=== PATIENT | male | born 1975 | race Caucasian/White ===

== ENCOUNTER 2018-03-09 09:17 | Emergency (ER) | payer OTHER ==
[~2018-03-09] VITALS: Ht 185.4 cm; Wt 102.1 kg
[~2018-03-09 09:17] MED LIST: ACEASPCAF PO; ASPI325 PO; ASPI81EC PO; CEFD300 PO; CEPH500 PO; Crutch1 EACH MISC; DIAZ5 PO; ERYT.5TO BOTHEYES; Esgic Tablet1 EACH PO; Flonase 0.05% N16 GM; HYDACE5325 PO; HYDR1TAB94 PO; MUPI2TO TOP; Monodox100 MG PO; NAPR500 PO; Norco 10-325 T1 EACH PO; ONDA4 PO; PROCODE120 PO; PSEU120ER PO; Percocet 5-3251 EACH PO; RXHYD5325 PO; SULTRIDS PO; TOBR.3OPO OP; Ventolin Soln3 ML INH; Zithromax250 MG PO
[2018-03-09] MEDS ORDERED: ASPI325 PO (09:54)
[2018-03-09] MEDS ORDERED: ALBU90OI INH (11:09)
== END 2018-03-09 11:12 | disposition home or self-care (01) ==
LOC: ER 09:17
DX: R21 Rash and other nonspecific skin eruption (principal); R06.2 Wheezing; Z88.0 Allergy status to penicillin; I10 Essential (primary) hypertension
CPT/HCPCS: 94640; 99283

== ENCOUNTER → 2018-03-22 | Outpatient (CLI) | payer OTHER ==
[~2018-03-22] MED LIST changes: +ALBU90OI INH
== END | disposition home or self-care (01) ==
LOC: LAB EV 16:57 → LAB SHORT 16:57
DX: R21 Rash and other nonspecific skin eruption (principal)
CPT/HCPCS: 87210

== ENCOUNTER → 2021-04-11 | Outpatient (CLI) | payer MEDICARE, OTHER | LOC: LAB SHORT 10:50 → LAB 10:50 | DX: Z48.02 Encounter for removal of sutures (principal); L08.9 Local infection of the skin and subcutaneous tissue, unspecified | CPT/HCPCS: 87070; 87077; 87147; 87186; 87205 ==

== ENCOUNTER 2021-08-22 13:28 | Emergency (ER) | payer MEDICARE, OTHER ==
[~2021-08-22] VITALS: Ht 182.9 cm; Wt 104.3 kg
[2021-08-22 14:09] LABS: BASOPHILS ABSOLUTE AUTO 0.03 K/mm3 (0.00-0.23); BASOPHILS PERCENT AUTO 0 % (0-2); EOSINOPHILS ABSOLUTE AUTO 0.01 K/mm3 (0.00-0.68); EOSINOPHILS PERCENT AUTO 0 % (0-6); Hematocrit 47.7 % (37.0-53.0); Hemoglobin 16.5 g/dL (13.5-17.5); IMMATURE GRAN ABSOLUTE AUTO 0.06 K/mm3 (0.00-0.10); IMMATURE GRAN PERCENT AUTO 1 % (0-1); LYMPHOCYTES ABSOLUTE AUTO 1.31 K/mm3 (0.84-5.20); LYMPHOCYTES PERCENT AUTO 11 % (21-46); MONOCYTES ABSOLUTE AUTO 0.64 K/mm3 (0.16-1.47); MONOCYTES PERCENT AUTO 5 % (4-13); Mean Corpuscular HGB 31.5 pg (26.0-34.0); Mean Corpuscular HGB Conc 34.6 g/dL (31.5-36.5); Mean Corpuscular Volume 91 fL (80-100); Mean Platelet Volume 10.3 fL (9.1-12.4); NEUTROPHILS ABSOLUTE AUTO 10.19 K/mm3 (1.96-9.15); NEUTROPHILS PERCENT AUTO 83 % (41-73); Platelet Count 275 K/mm3 (150-400); RDW Coefficient Variation 12.6 % (11.7-14.2); RDW Standard Deviation 42.1 fL (35.1-46.3); Red Blood Cell Count 5.24 M/mm3 (4.30-5.90); White Blood Cell Count 12.24 K/mm3 (4.00-11.30)
[2021-08-22 14:25] LABS: Alanine Aminotransfer (ALT/SGP 36 U/L (12-78); Albumin, Blood 4.5 g/dL (3.4-5.0); Albumin/Globulin Ratio 1.1 (0.8-1.8); Alk Phos 96 U/L (50-136); Anion Gap 12 mmol/L (6-16); Aspartate Aminotrans (AST/SGOT 23 U/L (12-37); Bilirubin, Total 1.3 mg/dL (0.1-1.0); Blood Urea Nitrogen 10 mg/dL (8-24); Bun/Creatinine Ratio 13.6 (12.0-20.0); CO2, Blood 24 mmol/L (21-32); Calcium, Blood 10.5 mg/dL (8.5-10.1); Chloride, Blood 103 mmol/L (98-108); Creatinine, Blood 0.73 mg/dL (0.60-1.20); Glomerular Filtration Rate >60 (60-); Glucose, Blood 145 mg/dL (70-99); Potassium, Blood 3.4 mmol/L (3.5-5.5); Sodium, Blood 139 mmol/L (136-145); Total Protein, Blood 8.5 g/dL (6.4-8.2)
[2021-08-22] MEDS ORDERED: ONDA4ODT MM (15:43)
== END 2021-08-22 15:49 | disposition home or self-care (01) ==
LOC: ER 13:28
PROVIDERS: Emergency Medicine
DX: F10.129 Alcohol abuse with intoxication, unspecified (principal); E86.0 Dehydration; Z88.0 Allergy status to penicillin; I10 Essential (primary) hypertension
CPT/HCPCS: 80053; 85025; 96374; 96375; 99284-25; J1885; J2060; J2405; J7030

== ENCOUNTER 2022-04-06 07:46 | Observation (INO) | payer MEDICARE, OTHER ==
[~2022-04-06] VITALS: Ht 185.4 cm; Wt 100.7 kg
[~2022-04-06 07:46] MED LIST changes: +ONDA4ODT MM
[2022-04-06 09:16] LABS: BASOPHILS ABSOLUTE AUTO 0.02 K/mm3 (0.00-0.23); BASOPHILS PERCENT AUTO 0 % (0-2); EOSINOPHILS ABSOLUTE AUTO 0.01 K/mm3 (0.00-0.68); EOSINOPHILS PERCENT AUTO 0 % (0-6); Hematocrit 44.1 % (37.0-53.0); IMMATURE GRAN ABSOLUTE AUTO 0.02 K/mm3 (0.00-0.10); IMMATURE GRAN PERCENT AUTO 0 % (0-1); LYMPHOCYTES PERCENT AUTO 9 % (21-46); MONOCYTES ABSOLUTE AUTO 1.04 K/mm3 (0.16-1.47); MONOCYTES PERCENT AUTO 18 % (4-13); Mean Corpuscular HGB 30.1 pg (26.0-34.0); Mean Corpuscular Volume 89 fL (80-100); Mean Platelet Volume 10.3 fL (9.1-12.4); NEUTROPHILS ABSOLUTE AUTO 4.29 K/mm3 (1.96-9.15); NEUTROPHILS PERCENT AUTO 73 % (41-73); Platelet Count 187 K/mm3 (150-400); RDW Coefficient Variation 13.2 % (11.7-14.2); RDW Standard Deviation 42.9 fL (35.1-46.3); Red Blood Cell Count 4.98 M/mm3 (4.30-5.90); White Blood Cell Count 5.88 K/mm3 (4.00-11.30)
[2022-04-06 09:41] LABS: Albumin, Blood 4.2 g/dL (3.4-5.0); Albumin/Globulin Ratio 1.2 (0.8-1.8); Bilirubin, Total 0.7 mg/dL (0.1-1.0); Bun/Creatinine Ratio 11.9 (12.0-20.0); Calcium, Blood 9.8 mg/dL (8.5-10.1); Creatinine, Blood 0.84 mg/dL (0.60-1.20); Globulin, Blood 3.4 g/dL (2.2-4.0); Potassium, Blood 3.8 mmol/L (3.5-5.5); Total Protein, Blood 7.6 g/dL (6.4-8.2)
--- NOTE | 2022-04-06 15:45 | NUR ---
PT ADMITTED TO ROOM 356 FROM ED AT 1515. ABLE TO TRANSFER SELF TO BED FROM / AND SETTLED IN TO BED. 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 ALSO REPORTS A "BAD" HIP. VERY TALKATIVE ON ARRIVAL AND REPORTS BEING ANXIOUS AND STILL HAVING A SEVERE HEADACHE WITH BULGING VEINGS.
--- NOTE | 2022-04-06 18:01 | NUR ---
SHIFT SUMMARY FAMILY TO SEE PT THIS AFTERNOON AND EVENING. REPORTS BEING AN "INTENSE" PERSON AND APPEARS TO HAVE ANXIETY OVER SEVERAL ISSUES. VERY TALKATIVE WITH ADMISSION SCREENING AND VISIT WITH MD. STATED DILAUDID DID HELP BRING HIS HEADACHE DOWN TO A 4. STATES HE FEELS LIKE HE HAS POORLY REGULATED TEMPERATURE AT THIS TIME BEING QUITE COLD AND THEN SWEATING. FOLLOWS A VEGETARIAN DIET. BROUGHT IN FOOD FROM HOME. EXPLAINED STRESS TEST TO BE DONE TOMORROW AND RULES OF EATING PRIOR TO TEST. WILL MONITER AND REPORT TO ONCOMING SHIFT.
--- NOTE | 2022-04-07 06:02 | NUR ---
SHIFT SUMMARY 46 YR M ADMITTED ON 04/06/22 FOR MIGRAINE/NV/CHEST PAIN. FULL CODE.L NO ACUTE CHANGES THIS SHIFT. AND SON WERE HER AT BEGINNING OF SHIFT THEN LEFT FOR THE NIGHT. PT APPEARED TO HAVE HAVE RESTED WELL FOR MOST OF THE NIGHT BUT EARLY THIS A.M. HE INFORMED STAFF THAT A FRIEND JUST CALLED TO TELL HIM THAT HE TESTED POS FOR COVID AND THE PT HAS BEEN AROUND HIM VERY RECENTLY. A COVID TEST WAS ADMINISTERED RIGHT AWAY AND WE AR AWAITING THE RESULTS.
[2022-04-07 06:11] LABS: Influenza A, PCR NEGATIVE (NEGATIVE); Influenza B, PCR NEGATIVE (NEGATIVE); Resp Syncytial Virus, PCR NEGATIVE (NEGATIVE)
[2022-04-07 07:05] LABS: SARS-Cov-2 (COVID-19) PCR, MMC POSITIVE (NEGATIVE)
--- NOTE | 2022-04-07 15:46 | NUR ---
Echocardiogram completed.
--- NOTE | 2022-04-07 17:00 | NUR ---
DISCHARGE INSTRUCTIONS COMPLETED AND DISCUSSED WITH PT EXPRESSING UNDERSTANDING. GIVEN COVID QUARENTINE INFOMATION. TO [facility]B VIA W/C WITH MASK IN PLACE.
== END 2022-04-07 16:30 | disposition home or self-care (01) ==
LOC: ER 07:46 → MEDS 07:47
PROVIDERS: Internal Medicine; Student in an Organized Health Care Education/Training Program; ADMIT Hospitalist
DX: R07.89 Other chest pain (principal); G43.909 Migraine, unspecified, not intractable, without status migrainosus; Z88.0 Allergy status to penicillin; I10 Essential (primary) hypertension; E78.5 Hyperlipidemia, unspecified; U07.1 COVID-19; G60.0 Hereditary motor and sensory neuropathy
CPT/HCPCS: 0241U; 36415; 70450; 71045; 78452; 80053; 84484; 85025; 85651; 86140; 93017; 93306; 96372; 96374; 96375; 99285-25; A9270; A9500; G0378; J0706; J1170; J1200; J1885; J2405; J2765; J2785; J7030

== ENCOUNTER 2022-06-08 08:31 | Emergency (ER) | payer MEDICARE, OTHER ==
[~2022-06-08] VITALS: Ht 185.4 cm; Wt 102.1 kg
[2022-06-08] MEDS ORDERED: Percocet 5-3251 EACH PO ×3 (12:08→12:10)
[2022-06-08] MEDS ORDERED: Cyclobenzaprine5 MG PO (12:10)
== END 2022-06-08 12:28 | disposition home or self-care (01) ==
LOC: ER 08:31
DX: M54.50 Low back pain, unspecified (principal); I10 Essential (primary) hypertension; Z88.0 Allergy status to penicillin; V29.9XXA Motorcycle rider (driver) (passenger) injured in unspecified traffic accident, initial encounter
CPT/HCPCS: 72131; 72192; A9270

== ENCOUNTER 2022-10-23 08:35 | Emergency (ER) | payer MEDICARE, OTHER ==
[~2022-10-23] VITALS: Ht 185.4 cm; Wt 106.6 kg
[~2022-10-23 08:35] MED LIST changes: +Aspir 8181 MG PO; +CHLO25B PO; +Cyclobenzaprine5 MG PO
== END 2022-10-23 10:07 | disposition home or self-care (01) ==
LOC: ER 08:35
DX: S61.216A Laceration without foreign body of right little finger without damage to nail, initial encounter (principal); I10 Essential (primary) hypertension; Z88.0 Allergy status to penicillin; W23.0XXA Caught, crushed, jammed, or pinched between moving objects, initial encounter
CPT/HCPCS: 90714

== ENCOUNTER 2023-04-23 10:20 | Emergency (ER) | payer OTHER, MEDICARE ==
[~2023-04-23] VITALS: Ht 185.4 cm; Wt 105.2 kg
[2023-04-23 10:28] VITALS: BP 150/114
== END 2023-04-23 12:19 | disposition home or self-care (01) ==
LOC: ER 10:20
DX: M54.2 Cervicalgia (principal); M54.50 Low back pain, unspecified; M25.511 Pain in right shoulder; I10 Essential (primary) hypertension; Z88.0 Allergy status to penicillin; Z86.16 Personal history of COVID-19; V89.2XXA Person injured in unspecified motor-vehicle accident, traffic, initial encounter
CPT/HCPCS: 72070; 72125; 73030; 99284-25

== ENCOUNTER 2023-11-13 09:52 | Emergency (ER) | payer MEDICARE, OTHER ==
[~2023-11-13] VITALS: Ht 185.4 cm; Wt 108.4 kg
[2023-11-13 10:48] VITALS: BP 164/100
[2023-11-13 11:42] LABS: Influenza A, PCR NEGATIVE (NEGATIVE); Influenza B, PCR NEGATIVE (NEGATIVE); Resp Syncytial Virus, PCR NEGATIVE (NEGATIVE)
[2023-11-13 12:26] LABS: SARS-Cov-2 (COVID-19) PCR, MMC POSITIVE (NEGATIVE)
[2023-11-13] MEDS ORDERED: Ketorolac Tromethamine 30mg Vial IM ONE (14:25)
== END 2023-11-13 15:05 | disposition home or self-care (01) ==
LOC: ER 09:52
PROVIDERS: Student in an Organized Health Care Education/Training Program
DX: U07.1 COVID-19 (principal); L02.31 Cutaneous abscess of buttock; I51.4 Myocarditis, unspecified; I10 Essential (primary) hypertension; Z86.14 Personal history of Methicillin resistant Staphylococcus aureus infection; Z88.0 Allergy status to penicillin
CPT/HCPCS: 0241U; 10060; 96372; 99283-25; J1885

== ENCOUNTER → 2023-11-15 | Outpatient (CLI) | payer MEDICARE, OTHER ==
[2023-11-15 12:55] LABS: BASOPHILS ABSOLUTE AUTO 0.02 K/mm3 (0.00-0.23); BASOPHILS PERCENT AUTO 0 % (0-2); EOSINOPHILS ABSOLUTE AUTO 0.09 K/mm3 (0.00-0.68); EOSINOPHILS PERCENT AUTO 1 % (0-6); Hematocrit 45.2 % (37.0-53.0); Hemoglobin 15.2 g/dL (13.5-17.5); IMMATURE GRAN ABSOLUTE AUTO 0.02 K/mm3 (0.00-0.10); IMMATURE GRAN PERCENT AUTO 0 % (0-1); LYMPHOCYTES ABSOLUTE AUTO 2.01 K/mm3 (0.84-5.20); LYMPHOCYTES PERCENT AUTO 25 % (21-46); MONOCYTES ABSOLUTE AUTO 0.87 K/mm3 (0.16-1.47); MONOCYTES PERCENT AUTO 11 % (4-13); Mean Corpuscular HGB 31.1 pg (26.0-34.0); Mean Corpuscular HGB Conc 33.6 g/dL (31.5-36.5); Mean Corpuscular Volume 93 fL (80-100); Mean Platelet Volume 9.9 fL (9.1-12.4); NEUTROPHILS ABSOLUTE AUTO 5.19 K/mm3 (1.96-9.15); NEUTROPHILS PERCENT AUTO 63 % (41-73); Platelet Count 210 K/mm3 (150-400); RDW Coefficient Variation 13.2 % (11.7-14.2); RDW Standard Deviation 44.8 fL (35.1-46.3); Red Blood Cell Count 4.88 M/mm3 (4.30-5.90)
[2023-11-15 13:06] LABS: Albumin, Blood 3.5 g/dL (3.4-5.0); Albumin/Globulin Ratio 0.9 (0.8-1.8); Bilirubin, Total 0.6 mg/dL (0.1-1.0); Bun/Creatinine Ratio 10.9 (12.0-20.0); Calcium, Blood 9.1 mg/dL (8.5-10.1); Creatinine, Blood 1.01 mg/dL (0.60-1.20); Globulin, Blood 3.8 g/dL (2.2-4.0); Potassium, Blood 3.9 mmol/L (3.5-5.5); Total Protein, Blood 7.3 g/dL (6.4-8.2)
== END ==
LOC: LAB 12:49 → LAB SHORT 12:49
PROVIDERS: Physician Assistant Medical
DX: I20.9 Angina pectoris, unspecified (principal)
CPT/HCPCS: 80053; 84484; 85025

== ENCOUNTER 2024-10-11 17:11 | Emergency (ER) | payer MEDICARE, OTHER ==
[~2024-10-11] VITALS: Ht 188 cm; Wt 108.9 kg
[2024-10-11 17:54] LABS: BASOPHILS ABSOLUTE AUTO 0.02 K/mm3 (0.00-0.23); BASOPHILS PERCENT AUTO 0 % (0-2); EOSINOPHILS ABSOLUTE AUTO 0.11 K/mm3 (0.00-0.68); EOSINOPHILS PERCENT AUTO 2 % (0-6); Hemoglobin 15.4 g/dL (13.5-17.5); IMMATURE GRAN ABSOLUTE AUTO 0.01 K/mm3 (0.00-0.10); IMMATURE GRAN PERCENT AUTO 0 % (0-1); LYMPHOCYTES ABSOLUTE AUTO 1.53 K/mm3 (0.84-5.20); LYMPHOCYTES PERCENT AUTO 25 % (21-46); MONOCYTES ABSOLUTE AUTO 0.87 K/mm3 (0.16-1.47); MONOCYTES PERCENT AUTO 14 % (4-13); Mean Corpuscular HGB 31.6 pg (26.0-34.0); Mean Corpuscular HGB Conc 34.2 g/dL (31.5-36.5); Mean Corpuscular Volume 92 fL (80-100); Mean Platelet Volume 9.4 fL (9.1-12.4); NEUTROPHILS ABSOLUTE AUTO 3.51 K/mm3 (1.96-9.15); NEUTROPHILS PERCENT AUTO 58 % (41-73); Platelet Count 206 K/mm3 (150-400); RDW Coefficient Variation 12.8 % (11.7-14.2); RDW Standard Deviation 43.2 fL (35.1-46.3); Red Blood Cell Count 4.88 M/mm3 (4.30-5.90); White Blood Cell Count 6.05 K/mm3 (4.00-11.30)
[2024-10-11 18:22] LABS: Albumin, Blood 3.9 g/dL (3.4-5.0); Albumin/Globulin Ratio 1.1 (0.8-1.8); Bilirubin, Total 0.8 mg/dL (0.1-1.0); Bun/Creatinine Ratio 10.8 (12.0-20.0); Calcium, Blood 8.9 mg/dL (8.5-10.1); Creatinine, Blood 0.83 mg/dL (0.60-1.20); Globulin, Blood 3.5 g/dL (2.2-4.0); Potassium, Blood 3.8 mmol/L (3.5-5.5); Total Protein, Blood 7.4 g/dL (6.4-8.2)
[2024-10-11 20:15] VITALS: BP 161/108
[2024-10-11] MEDS ORDERED: Ketorolac Tromethamine 15mg Vial IV ONE (20:30)
[2024-10-11 21:29] LABS: Influenza B, PCR NEGATIVE (NEGATIVE); Resp Syncytial Virus, PCR NEGATIVE (NEGATIVE); SARS-Cov-2 (COVID-19) PCR, MMC NEGATIVE (NEGATIVE)
[2024-10-11 21:54] LABS: Influenza A, PCR POSITIVE (NEGATIVE)
== END 2024-10-11 20:56 | disposition home or self-care (01) ==
LOC: ER 17:11
PROVIDERS: Physician Assistant; Student in an Organized Health Care Education/Training Program
DX: J10.1 Influenza due to other identified influenza virus with other respiratory manifestations (principal); I10 Essential (primary) hypertension; Z88.0 Allergy status to penicillin
CPT/HCPCS: 0241U; 71046; 80053; 83880; 84484; 85025; 93005; 93010; 96374; 99284-25; J1885

== ENCOUNTER 2024-11-26 13:16 | Emergency (ER) | payer MEDICARE, OTHER ==
[~2024-11-26] VITALS: Ht 185.4 cm; Wt 115.7 kg
[2024-11-26 13:51] LABS: BASOPHILS ABSOLUTE AUTO 0.03 K/mm3 (0.00-0.23); BASOPHILS PERCENT AUTO 0 % (0-2); EOSINOPHILS PERCENT AUTO 3 % (0-6); Hematocrit 48.2 % (37.0-53.0); Hemoglobin 16.6 g/dL (13.5-17.5); IMMATURE GRAN ABSOLUTE AUTO 0.02 K/mm3 (0.00-0.10); IMMATURE GRAN PERCENT AUTO 0 % (0-1); LYMPHOCYTES ABSOLUTE AUTO 2.68 K/mm3 (0.84-5.20); LYMPHOCYTES PERCENT AUTO 34 % (21-46); MONOCYTES ABSOLUTE AUTO 0.66 K/mm3 (0.16-1.47); MONOCYTES PERCENT AUTO 8 % (4-13); Mean Corpuscular HGB 31.4 pg (26.0-34.0); Mean Corpuscular HGB Conc 34.4 g/dL (31.5-36.5); Mean Corpuscular Volume 91 fL (80-100); Mean Platelet Volume 10.3 fL (9.1-12.4); NEUTROPHILS ABSOLUTE AUTO 4.34 K/mm3 (1.96-9.15); NEUTROPHILS PERCENT AUTO 55 % (41-73); Platelet Count 230 K/mm3 (150-400); RDW Coefficient Variation 12.7 % (11.7-14.2); RDW Standard Deviation 42.5 fL (35.1-46.3); Red Blood Cell Count 5.29 M/mm3 (4.30-5.90); White Blood Cell Count 7.93 K/mm3 (4.00-11.30)
[2024-11-26 14:02] LABS: Albumin, Blood 4.2 g/dL (3.4-5.0); Albumin/Globulin Ratio 1.1 (0.8-1.8); Bun/Creatinine Ratio 15.9 (12.0-20.0); Calcium, Blood 9.6 mg/dL (8.5-10.1); Creatinine, Blood 0.82 mg/dL (0.60-1.20); Globulin, Blood 3.7 g/dL (2.2-4.0); Potassium, Blood 4.2 mmol/L (3.5-5.5); Total Protein, Blood 7.9 g/dL (6.4-8.2)
[2024-11-26] MEDS ORDERED: HydrALAZINE HCl 20 MG / ML 1ML Vial IV ONE (14:40)
[2024-11-26] MEDS ORDERED: DiphenhydrAMINE HCl 50 MG/ML 1ML Vial IV ONE (14:45)
[2024-11-26] MEDS ORDERED: Prochlorperazine Edisylate 10 mg Vial IV ONE (14:45)
[2024-11-26] MEDS ORDERED: Labetalol HCL 5 MG/ML 4ML Injection (Single Dose) IV ONE (15:45)
[2024-11-26 16:45] VITALS: BP 156/95
== END 2024-11-26 16:55 | disposition home or self-care (01) ==
LOC: ER 13:16
PROVIDERS: Physician Assistant
DX: R07.9 Chest pain, unspecified (principal); Z88.1 Allergy status to other antibiotic agents
CPT/HCPCS: 71046; 80053; 84484; 85025; 93005; 93010; 96374; 96375; 99284-25; J0360; J0780; J1200